=== PATIENT | male | born 1970 | race Caucasian/White ===

== ENCOUNTER 2016-10-17 10:31 | Emergency (ER) | payer SELFPAY ==
[~2016-10-17] VITALS: Ht 167.6 cm; Wt 70.0 kg
[~2016-10-17 10:31] MED LIST: DOXY100T PO; LORC10TA PO; SULF1TAB47 PO
[2016-10-17 10:32] VITALS: BP 123/83; PULSE 112; RESP 16; TEMP 98; O2SAT 98
== END 2016-10-17 12:41 | disposition left against medical advice (07) ==
LOC: NED 10:31
DX: Z53.21 Procedure and treatment not carried out due to patient leaving prior to being seen by health care provider (principal)
CPT/HCPCS: 99281

== ENCOUNTER 2017-01-14 21:17 | Emergency (ER) | payer SELFPAY ==
[2017-01-14 21:18] VITALS: BP 135/92; PULSE 82; RESP 20; TEMP 98.2; O2SAT 98
[2017-01-14] MEDS ORDERED: TETANUS/DIPHTHERIA TOXOID ADULT 0.5 ML VIAL IM ONE (21:45)
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
[2017-01-14 22:25] LABS: AUTOMATED NEUTROPHIL # 6.1 TH/MM3 (1.8-7.7); BASOPHIL # 0.1 TH/MM3 (0-0.2); EOSINOPHIL # 0.2 TH/MM3 (0-0.4); EOSINOPHIL % 2.1 % (0.0-4.0); HEMATOCRIT 42.3 % (39.0-51.0); HEMO FLAGS DIFF FINAL; LYMPHOCYTE # 3.1 TH/MM3 (1.0-4.8); MEAN CELL VOLUME 88.2 FL (80.0-100.0); MEAN CORPUSCULAR HEMOGLOBIN 29.9 PG (27.0-34.0); MEAN CORPUSCULAR HGB CONC 33.9 % (32.0-36.0); MONO % 10.1 % (0.0-8.0); NEUT % 57.8 % (16.0-70.0); PLATELET COUNT 349 TH/MM3 (150-450); RED BLOOD COUNT 4.79 MIL/MM3 (4.50-5.90); RED CELL DISTRIBUTION WIDTH 13.8 % (11.6-17.2); WHITE BLOOD COUNT 10.6 TH/MM3 (4.0-11.0)
[2017-01-14 22:43] LABS: BICARBONATE 27.3 MEQ/L (21.0-32.0); POTASSIUM 3.9 MEQ/L (3.5-5.1)
[2017-01-14] MEDS ORDERED: CEPH-460 PO (22:46)
[2017-01-14] MEDS ORDERED: BACT800T5 PO (22:46)
--- NOTE | 2017-01-14 22:49 | RADRPT ---
EXAM DATE/TIME: 01/14/2017 22:15 [place] COMPARISON: No previous studies available for comparison. INDICATIONS : Right hand swelling for 1 week. Evaluate for foreign body. MEDICAL HISTORY : None. 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 ENCOUNTER: Initial ACUITY: 1 week PAIN SCORE: 4/10 LOCATION: Right hand. FINDINGS: There is diffuse soft tissue swelling about the hand both dorsally and medially. No radiopaque forei gn body seen. No soft tissue gas seen. There is amputation of the 4th digit at the level of the dis dariel metaphysis of the middle phalanx. The remainder of the osseous structures of the hand are intact . CONCLUSION: Diffuse soft tissue swelling about the dorsal and medial hand. Osseous structures are grossly intact . Pop Ortega MD on January 14, 2017 at 22:46 Board Certified Radiologist. This report was verified electronically.
[2017-01-14] MEDS ORDERED: SULFAMETHOXAZOLE-TRIMETHOPRIM DS 800-160 MG TAB PO ONE (23:00)
[2017-01-14] MEDS ORDERED: CEPHALEXIN MONOHYDRATE 500 MG CAP PO ONE (23:00)
== END 2017-01-14 23:01 | disposition home or self-care (01) ==
LOC: NEPE 21:17
DX: L03.113 Cellulitis of right upper limb (principal); F11.10 Opioid abuse, uncomplicated; F17.210 Nicotine dependence, cigarettes, uncomplicated; Z23 Encounter for immunization
CPT/HCPCS: 73130; 80048; 85025; 90471; 90714

== ENCOUNTER 2017-02-23 02:46 | Emergency (ER) | payer SELFPAY ==
[~2017-02-23] VITALS: Ht 172.7 cm; Wt 68.0 kg
[~2017-02-23 02:46] MED LIST changes: +BACT800T5 PO; +CEPH-460 PO; -DOXY100T PO; -LORC10TA PO; -SULF1TAB47 PO
[2017-02-23 02:50] VITALS: BP 139/92; PULSE 100; RESP 16; TEMP 98.4; O2SAT 100
== END 2017-02-23 03:01 | disposition left against medical advice (07) ==
LOC: NETRI 02:46
DX: L98.9 Disorder of the skin and subcutaneous tissue, unspecified (principal); Z53.21 Procedure and treatment not carried out due to patient leaving prior to being seen by health care provider
CPT/HCPCS: 99281

== ENCOUNTER 2017-07-14 21:50 | Emergency (ER) | payer SELFPAY ==
[2017-07-15 00:32] LABS: BICARBONATE 25.5 MEQ/L (21.0-32.0); CALCIUM 8.5 MG/DL (8.5-10.1); CREATININE 0.84 MG/DL (0.60-1.30)
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
[2017-07-15] MEDS ORDERED: NALO1SPR NASAL (00:59)
== END 2017-07-15 01:13 | disposition home or self-care (01) ==
LOC: NEPE 21:50
DX: T40.1X1A Poisoning by heroin, accidental (unintentional), initial encounter (principal); F17.200 Nicotine dependence, unspecified, uncomplicated; B19.20 Unspecified viral hepatitis C without hepatic coma
CPT/HCPCS: 80048; 99283